=== PATIENT | male | born 1955 | race Caucasian/White ===

== ENCOUNTER 2018-11-23 15:24 | Emergency (ER) | payer OTHER ==
[~2018-11-23] VITALS: Wt 72.6 kg
[2018-11-23] MEDS ORDERED: CEFADROXIL500 M1 PO (15:42)
[2018-11-23] MEDS ORDERED: TRAMADOL HCL50 MG PO (15:42)
== END 2018-11-23 17:32 | disposition home or self-care (01) ==
LOC: ED 15:24
DX: S62.632B Displaced fracture of distal phalanx of right middle finger, initial encounter for open fracture (principal); S61.200A Unspecified open wound of right index finger without damage to nail, initial encounter; W31.89XA Contact with other specified machinery, initial encounter; Y93.89 Activity, other specified; Y92.89 Other specified places as the place of occurrence of the external cause; Y99.8 Other external cause status

== ENCOUNTER 2019-10-23 08:59 | Inpatient (IN) | payer OTHER ==
[~2019-10-23] VITALS: Ht 182.8 cm; Wt 72.6 kg
[2019-10-23] VITALS (8 sets, daily range): BP systolic 116–144; BP diastolic 62–95
[~2019-10-23 08:59] MED LIST: CEFADROXIL500 M1 PO; TRAMADOL HCL50 MG PO
[2019-10-23 09:57] LABS: BASO % 0.3 % (0.0-1.0); EOS # 0.1 10*3/uL (0.0-0.4); HEMATOCRIT 47.5 % (42.0-52.0); LYMPH # 1.8 10*3/uL (1.3-4.4); MEAN CELL VOLUME 92.4 fl (80.0-94.0); MEAN CORPUSCULAR HGB 31.3 pg (27.0-31.0); MEAN CORPUSCULAR HGB CONC 33.9 g/dl (33.0-37.0); MEAN PLATELET VOLUME 10.7 fl (9.6-12.3); MONO # 0.4 10*3/uL (0.1-1.0); MONO % 4.4 % (3.0-9.0); NEUT # 6.5 10*3/uL (2.3-7.9); PLATELET COUNT AUTOMATED 224 10*3/uL (130-400); RED BLOOD COUNT 5.14 10*6/uL (4.50-5.90); RED CELL DISTRI WIDTH 12.7 % (0-14.5); WHITE BLOOD COUNT 8.8 10*3/uL (4.8-10.8)
[2019-10-23 10:12] LABS: URINE AMPHETAMINES < 1000 (1000ng/ml); URINE BARBITURATES < 200 (200ng/ml); URINE BENZODIAZEPINES < 200 (200ng/ml); URINE CANNABINOIDS (THC) < 50 (50ng/ml); URINE COCAINE < 300 (300ng/ml); URINE METHADONE < 300 (300ng/ml); URINE OPIATES < 300 (300ng/ml)
[2019-10-23 10:14] LABS: URINE PHENCYCLIDINE < 25 (25ng/ml)
[2019-10-23 10:14] LABS: ACT PARTIAL THROMBO TIME 26.1 SECONDS (20.0-32.1); INTERNATIONAL NORM RATIO 0.9 (2.0-3.5)
[2019-10-23 10:16] LABS: ALKALINE PHOSPHATASE 74 U/L (45-117); BUN 18 mg/dl (7-24); CHLORIDE 106 mmol/L (98-107); CREATININE 1.25 mg/dL (0.70-1.30); LIPASE 140 U/L (73-393); POTASSIUM 3.7 mmol/L (3.5-5.1); SGOT/AST 16 IU/L (3-35); SGPT/ALT 21 U/L (12-78); SODIUM 138 mmol/L (136-145); TOTAL PROTEIN 7.6 gm/dL (6.4-8.2)
[2019-10-23 10:21] LABS: ETHYL ALCOHOL < 3.0 mg/dl (<3); TROPONIN I < 0.015 ng/ml (<0.045)
[2019-10-23 10:22] LABS: ACETAMINOPHEN (TYLENOL) < 5.0 ug/ml (10-30)
[2019-10-23 10:26] LABS: BILIRUBIN NEGATIVE (NEGATIVE); BLOOD NEGATIVE (NEGATIVE); CLARITY CLEAR (CLEAR); COLOR YELLOW (YELLOW); GLUCOSE NEGATIVE (NEGATIVE); KETONE NEGATIVE (NEGATIVE); LEUKO ESTERASE NEGATIVE (NEGATIVE); NITRITE NEGATIVE (NEGATIVE); RBC 0-2 rbc/hpf (0-2); UROBILINOGEN 0.2 E.U./dl (0.2-1.0)
[2019-10-23 10:27] LABS: BACTERIA TRACE; EPITHELIAL CELLS 0-2; MUCOUS 1+; WBC 0-2 wbc/hpf (0-5)
--- NOTE | 2019-10-23 14:10 | NUR ---
A 64, admitted to , under the services of CHARIS Zavala DO with a diagnosis of DYSPNEA,NEAR SYNCOPE, CHEST PAIN R/O SC. Chief complaint is SMOKE INHILATION, CHEST PRESSURE. Patient arrived via bed from ER. Monitor applied. Initial assessment completed. Vital signs taken and recorded. CHARIS ZAVALA DO notified of admission to the unit. Orders received. See assessment for past medical history, medications and allergies. Patient and/or family oriented to unit. [facility]. Clothing/patient valuable form completed. ROBBI MCKAY
[2019-10-23 17:04] LABS: ABG BASE EXCESS 1.9 mmol/L (-2.0-2.0); ARTERIAL BLOOD GAS PH 7.489 (7.35-7.45)
--- NOTE | 2019-10-23 19:00 | NUR ---
ASSUMED CARE FOR THIS PT AT THIS TIME. NO C/O VOICED. NO S/S OF RESP DISTRESS NOTED. CALL LIGHT IN REACH.
[2019-10-24] VITALS: BP 125/68
[2019-10-24 06:12] LABS: ALBUMIN 3.2 gm/dl (3.1-4.5); ALKALINE PHOSPHATASE 56 U/L (45-117); BASO # 0.1 10*3/uL (0.0-0.1); BASO % 0.9 % (0.0-1.0); BUN 18 mg/dl (7-24); CHLORIDE 109 mmol/L (98-107); CHOLESTEROL 166 mg/dL (<200); CREATININE 1.06 mg/dL (0.70-1.30); EOS # 0.2 10*3/uL (0.0-0.4); EOS % 2.8 % (1.0-4.0); HDL CHOLESTEROL 48 mg/dl (40-60); HEMATOCRIT 40.9 % (42.0-52.0); LDL CHOLESTEROL 98 mg/dL (9-159); LYMPH # 1.5 10*3/uL (1.3-4.4); LYMPH % 18.5 % (27.0-41.0); MEAN CELL VOLUME 90.9 fl (80.0-94.0); MEAN CORPUSCULAR HGB 31.8 pg (27.0-31.0); MEAN PLATELET VOLUME 11.2 fl (9.6-12.3); MONO # 0.6 10*3/uL (0.1-1.0); MONO % 7.3 % (3.0-9.0); NEUT # 5.8 10*3/uL (2.3-7.9); PLATELET COUNT AUTOMATED 197 10*3/uL (130-400); POTASSIUM 3.7 mmol/L (3.5-5.1); RED CELL DISTRI WIDTH 12.5 % (0-14.5); SGOT/AST 8 IU/L (3-35); SGPT/ALT 18 U/L (12-78); SODIUM 141 mmol/L (136-145); TOTAL PROTEIN 5.9 gm/dL (6.4-8.2); TRIGLYCERIDES 102 mg/dl (<150); VLDL CHOLESTEROL 20 mg/dL (6-40); WHITE BLOOD COUNT 8.2 10*3/uL (4.8-10.8)
[2019-10-24 08:00] VITALS: BP 126/84
[2019-10-24 08:28] LABS: VITAMIN D, 25-HYDROXY 23.2 ng/mL (30-100)
--- NOTE | 2019-10-24 09:30 | NUR ---
Investor Relations Analyst in to talk to patient. Patient states lives at home alone with . There are no steps in the home. Physician: none at present Pharmacy: [facility] Home health services: none Patient's level of ADLs: INDEPENDENT Patient has working utilities: all working DME: none Follow-up physician's appointment after d/c: will be made by hospitalist nurse director upon discharge Does patient want to access PORTAL?: no Discharge plan discussed with patient, he states he lives at home alone, he is independent in adls and ambulation, drives, he states he will return home when medically stable and denies any home needs, discussed with him not having a doctor at present. discussed with him options for doctors and he stated he would like to come to the resident clinic. hospitalist nurse director will make follow up appointment with resident clinic when patient is medically stable for discharge. ROHIT DOE
[2019-10-24 12:00] VITALS: BP 108/84
--- NOTE | 2019-10-24 13:46 | NUR ---
Discharge instructions reviewed with patient/family. Patient receptive and verbalizes understanding. Follow-up care arranged. Written instructions given to patient/family. LUZ CARCAMO
== END 2019-10-24 13:46 | disposition home or self-care (01) | DRG 918 ==
LOC: ED 08:59 → EDHOLD 13:09 → 4E 13:09
PROVIDERS: Emergency Medicine; Internal Medicine; Internal Medicine Critical Care Medicine; ADMIT Internal Medicine
DX: T58.8X1A Toxic effect of carbon monoxide from other source, accidental (unintentional), initial encounter (principal); E83.41 Hypermagnesemia; F17.210 Nicotine dependence, cigarettes, uncomplicated; R73.9 Hyperglycemia, unspecified; J42 Unspecified chronic bronchitis; R55 Syncope and collapse; F32.9 Major depressive disorder, single episode, unspecified; F41.9 Anxiety disorder, unspecified; R00.1 Bradycardia, unspecified; M19.90 Unspecified osteoarthritis, unspecified site; X03.1XXA Exposure to smoke in controlled fire, not in building or structure, initial encounter; Z82.49 Family history of ischemic heart disease and other diseases of the circulatory system; Z80.9 Family history of malignant neoplasm, unspecified; Z71.6 Tobacco abuse counseling; Y92.098 Other place in other non-institutional residence as the place of occurrence of the external cause

== ENCOUNTER 2020-02-10 12:48 | Emergency (ER) | payer OTHER ==
[2020-02-10] MEDS ORDERED: FLONASE ALLERG9.9 ML NAS (14:39)
[2020-02-10] MEDS ORDERED: ZYRTEC10 M2 PO (14:39)
== END 2020-02-10 15:50 | disposition home or self-care (01) ==
LOC: ED 12:48
DX: B34.9 Viral infection, unspecified (principal); J44.9 Chronic obstructive pulmonary disease, unspecified; M19.90 Unspecified osteoarthritis, unspecified site; F41.9 Anxiety disorder, unspecified; Z20.828 Contact with and (suspected) exposure to other viral communicable diseases

== ENCOUNTER 2020-04-28 09:55 | Emergency (ER) | payer OTHER ==
[~2020-04-28] VITALS: Ht 180.3 cm; Wt 74.8 kg
[~2020-04-28 09:55] MED LIST changes: +FLONASE ALLERG9.9 ML NAS; +ZYRTEC10 M2 PO
[2020-04-28] MEDS ORDERED: PREDNISONE20 M1 PO (10:26)
[2020-04-28] MEDS ORDERED: NAPROSYN500 MG PO (10:26)
== END 2020-04-28 10:45 | disposition home or self-care (01) ==
LOC: ED 09:55
DX: M10.9 Gout, unspecified (principal); Z79.899 Other long term (current) drug therapy

== ENCOUNTER 2021-01-24 09:36 | Emergency (ER) | payer OTHER ==
[~2021-01-24] VITALS: Ht 180.3 cm; Wt 74.8 kg
[~2021-01-24 09:36] MED LIST changes: +NAPROSYN500 MG PO; +PREDNISONE20 M1 PO
[2021-01-24] MEDS ORDERED: HYDROCODONE-AC1 EAC1 PO (12:03)
== END 2021-01-24 12:15 | disposition home or self-care (01) ==
LOC: ED 09:36
DX: M79.672 Pain in left foot (principal); F17.210 Nicotine dependence, cigarettes, uncomplicated; Z79.899 Other long term (current) drug therapy; Z98.890 Other specified postprocedural states

== ENCOUNTER → 2021-04-14 | Outpatient (CLI) | payer OTHER ==
[~2021-04-14] MED LIST changes: +HYDROCODONE-AC1 EAC1 PO
== END | disposition home or self-care (01) ==
LOC: COVID19 15:10
PROVIDERS: ATTEND Internal Medicine
DX: Z11.52 Encounter for screening for COVID-19 (principal)